=== PATIENT | male | born 1985 | race Caucasian/White ===

== ENCOUNTER 2017-05-18 10:32 | Emergency (ER) | payer BC ==
[2017-05-18] MEDS ORDERED: Lidocaine 1% 20 ML MDV INJECT ONE (11:05)
[2017-05-18] MEDS ORDERED: Diphtheria,Pertussis(Acell),Tetanus Vaccine 0.5 ML Syringe IM ONE (11:24)
[2017-05-18] MEDS ORDERED: Bacitracin Oint 1 GM U/D Packet TOP ONE (12:02)
--- NOTE | 2017-05-18 12:02 | EDM.PDOC ---
ED HPI GENERAL MEDICAL PROBLEM - General Chief Complaint: Laceration Stated Complaint: CUT ON RT HAND Time Seen by Provider: 05/18/17 10:47 Source of Information: Reports: Patient History Limitations: Reports: No Limitations - History of Present Illness INITIAL COMMENTS - FREE TEXT/NARRATIVE: HISTORY AND PHYSICAL: []32-year-old male presenting with a laceration to the palmar surface of his right hand History of Present Illness: []He was cleaning out his garage and cut his hand on a piece of glass Review of Systems: As per history of present illness and below otherwise all systems reviewed and negative. Past medical history: As per history of present illness and as reviewed below otherwise noncontributory. Surgical history: As per history of present illness and as reviewed below otherwise noncontributory. Social history: No reported history of drug or alcohol abuse. Family history: As per history of present illness and as reviewed below otherwise noncontributory. Physical exam: Patient is alert and oriented nontoxic in appearance speaks in full sentences without any shortness of breath. HEENT: Atraumatic, normocehpalic, pupils reactive, negative for conjunctival pallor or scleral icterus, mucous membranes moist, throat clear, neck supple, nontender, trachea midline. Lungs: Clear to auscultation, breath sounds equal bilaterally, chest non tender. Heart: S1S2, regular, negative for clicks, rubs, or JVD. Abdomen: Soft, nondistended, nontender. Negative for masses or hepatossplenmegaly. Negative for costovertebral tenderness. Pelvis: Stable nontender. Genitourinary: Deferred. Rectal: Deferred Extremities: 4 cm flap type laceration to the palmar surface of his right hand. Sensation is intact radial pulses intact. He is able to flex and extend his fingers without any difficulty. Visualization to the wound does not identify any tendons that were involved. Edges were well approximated after sutures placed patient tolerated all procedures well, negative for cords or calf pain. Neurovascular unremarkable. Neuro: Awake, alert, oriented. Cranial nerves II through XII unremarkable. Cerebellum unremarkable. Motor and sensory unremarkable throughout. Exam nonfocal. Diagnostics: [] Therapeutics: [Suture placement] x tetanus vaccine Impression: [Laceration] Plan: []Discharged to home Sutures out in 7-10 days Follow-up with Dr. Ericka Gregg [facility] [address] [place] [address], [address] [place] [address] Definitive disposition and diagnosis as appropriate pending reevaluation and review of above. Treatments DIRECT SUPPORT SPECIALIST: Reports: Other (see below) Other Treatments DIRECT SUPPORT SPECIALIST: Patient applied pressure dressing prior to arrival Right Hand Pain Score (Numeric/FACES): 2 - Related Data Allergies Allergy/AdvReac Type Severity Reaction Status Date / Time No Known Allergies Allergy Verified 09/14/15 11:41 Home Meds: Home Meds . 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 ED EXAM, SKIN/RASH Exam: See Below (See dictation) ED SKIN PROCEDURES - Laceration/Wound Repair Right Posterior Medial Hand Lac/Wound length In cm: 4 Appearance: Muscle, Clean Distal NVT: Neuro & Vascular Intact, No Tendon Injury Anesthetic Type: Local Local Anesthesia - Lidocaine (Xylocaine): 1% Plain Local Anesthetic Volume: 4cc Skin Prep: Saline, Sterile Drape Exploration/Debridement/Repair: Wound Explored, In a Bloodless Field, Explored to Base Closed with: Sutures Suture Size: 4-0 # of Sutures: 6 Suture Type: Nylon, Interrupted, Simple Drain Placement: No Sterile Dressing Applied: Nurse Tetanus Status Addressed: Yes Complications: No Course - Vital Signs Last Recorded V/S: Last Vital Signs Temp 36.3 C 05/18/17 10:44 Pulse 70 05/18/17 10:44 Resp 18 05/18/17 10:44 BP 133/87 05/18/17 10:44 Pulse Ox 97 05/18/17 10:44 - Orders/Labs/Meds Orders: Active Orders 24 hr Category Date Time Status Vaccines to be Administered [RC] PER UNIT ROUTINE Care 05/18/17 11:24 Active Meds: Medications Discontinued Medications Generic Name Dose Route Start Last Admin Trade Name Merlin PRN Reason Stop Dose Admin Diphtheria/Tetanus/Acell Pertussis 0.5 ml 05/18/17 11:24 05/18/17 11:45 Adacel IM 05/18/17 11:25 0.5 ml .ONCE ONE Administration Lidocaine HCl 20 ml 05/18/17 11:05 05/18/17 11:45 Xylocaine 1% INJECT 05/18/17 11:06 20 ml ONETIME ONE Administration Departure - Departure Time of Disposition: 12:00 Disposition: Home, Self-Care 01 Condition: Good Clinical Impression: Laceration - Discharge Information Instructions: Laceration Care, Adult, [id number] Referrals: Jamal Paul MD [Primary Care Provider] - Additional Instructions: The following information is given to patients seen in the emergency department who are being discharged to home. This information is to outline your options for follow-up care. We provide all patients seen in our emergency department with a follow-up referral. The need for follow-up, as well as the timing and circumstances, are variable depending upon the specifics of your emergency department visit. If you don't have a primary care physician on staff, we will provide you with a referral. We always advise you to contact your personal physician following an emergency department visit to inform them of the circumstance of the visit and for follow-up with them and/or the need for any referrals to a consulting specialist. The emergency department will also refer you to a specialist when appropriate. This referral assures that you have the opportunity for followup care with a specialist. All of these measure are taken in an effort to provide you with optimal care, which includes your followup. Under all circumstances we always encourage you to contact your private physician who remains a resource for coordinating your care. When calling for followup care, please make the office aware that this follow-up is from your recent emergency room visit. If for any reason you are refused follow-up, please contact the [facility] emergency department at and asked to speak to the emergency department charge nurse. You were given a tetanus vaccine while in the emergency department, Tylenol will help if you have any aching to your arm for the next 24 hours Please follow-up with Dr. Ericka Gregg [facility] [address] [place] [address], [address] [place] [address] Sutures out in 7 - 10 days - My Orders Last 24 Hours: My Active Orders 05/18/17 11:24 Vaccines to be Administered [RC] PER UNIT ROUTINE - Assessment/Plan Last 24 Hours: My Active Orders 05/18/17 11:24 Vaccines to be Administered [RC] PER UNIT ROUTINE
[2017-05-18 12:33] VITALS: BP 120/76
== END 2017-05-18 12:33 | disposition home or self-care (01) ==
LOC: MW.ED 10:32
DX: S61.411A Laceration without foreign body of right hand, initial encounter (principal); Z23 Encounter for immunization; W25.XXXA Contact with sharp glass, initial encounter
CPT/HCPCS: 12002; 90471; 90715; 99282; 99282-25

== ENCOUNTER 2020-06-26 13:17 | Emergency (ER) | payer BC ==
--- NOTE | 2020-06-26 13:40 | EDM.PDOC ---
ED HPI GENERAL MEDICAL PROBLEM - General Chief Complaint: Abdominal Pain Stated Complaint: ABDOMINAL PAIN Time Seen by Provider: 06/26/20 13:18 Source of Information: Reports: Patient History Limitations: Reports: No Limitations - History of Present Illness INITIAL COMMENTS - FREE TEXT/NARRATIVE: 35-year-old male no past medical history presents for abdominal pain starting 3 days ago and worsening today. Started as a midline lower abdominal cramping pain, and today started to move up into diffuse abdomen. It is associated with constipation with last bowel movement small and hard yesterday, but no nausea, vomiting, fevers, chest pain, cough, shortness of breath. No history of prior abdominal surgeries abdomen Pain Score (Numeric/FACES): 4 - Related Data Allergies Allergy/AdvReac Type Severity Reaction Status Date / Time No Known Allergies Allergy Verified 06/26/20 13:32 Home Meds: Home Meds . 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 ED EXAM, GENERAL - Physical Exam Exam: See Below Exam Limited By: No Limitations General Appearance: Alert, WD/WN, No Apparent Distress Throat/Mouth: Normal Voice, No Airway Compromise Head: Atraumatic, Normocephalic Respiratory/Chest: No Respiratory Distress, Lungs Clear, Normal Breath Sounds, No Accessory Muscle Use Cardiovascular: Normal Peripheral Pulses, Regular Rate, Rhythm GI/Abdominal: Soft, No Distention, Other (diffuse TTP with voluntary guarding) Extremities: Normal Inspection Neurological: Alert Psychiatric: Normal Affect, Normal Mood Skin Exam: Warm, Dry, Intact, Normal Color Course - Vital Signs Last Recorded V/S: Last Vital Signs Temp 98.0 F 06/26/20 13:33 Pulse 96 06/26/20 13:33 Resp 18 06/26/20 13:33 BP 122/82 06/26/20 13:33 Pulse Ox 97 06/26/20 13:33 - Orders/Labs/Meds Orders: Active Orders 24 hr Category Date Time Status Heparin Sod,Pork In 0.45% Nacl [Heparin-1/2Ns 25,000 Med 06/26/20 16:45 Active Units/500] 25,000 unit in 500 ml IV TITRATE Piperacillin/Tazobactam [Piperacil-Tazobact] 4.5 gm Med 06/26/20 16:35 Active Sodium Chloride 0.9% [Normal Saline] 100 ml IV ONETIME Sodium Chloride 0.9% [Saline Flush] Med 06/26/20 13:44 Active 10 ml FLUSH ASDIRECTED PRN Sodium Chloride 0.9% [Saline Flush] Med 06/26/20 13:44 Active 2.5 ml FLUSH ASDIRECTED PRN Saline Lock Insert [OM.PC] Stat Oth 06/26/20 13:44 Ordered Medication Orders Piperacillin Sod/Tazobactam (Sod 4.5 gm/ Sodium Chloride) 100 mls @ 100 mls/hr IV ONETIME ONE Stop: 06/26/20 17:34 Heparin Sodium/Sodium Chloride (Heparin-1/2ns 25,000 Units/500) 25,000 unit in 500 mls @ 25.583 mls/hr IV TITRATE SAVANNA; Protocol Sodium Chloride (Saline Flush) 10 ml FLUSH ASDIRECTED PRN PRN Reason: Keep Vein Open Last Admin: 06/26/20 14:02 Dose: 10 ml Documented by: MANA Sodium Chloride (Saline Flush) 2.5 ml FLUSH ASDIRECTED PRN PRN Reason: Keep Vein Open Last Admin: 06/26/20 14:01 Dose: 2.5 ml Documented by: MANA Labs: Laboratory Tests 06/26/20 06/26/20 06/26/20 Range/Units 13:55 13:58 13:58 WBC 7.99 (4.0-11.0) K/uL RBC 4.81 (4.50-5.90) M/uL Hgb 14.0 (13.0-17.0) g/dL Hct 41.9 (38.0-50.0) % MCV 87.1 (80.0-98.0) fL MCH 29.1 (27.0-32.0) pg MCHC 33.4 (31.0-37.0) g/dL RDW Std Deviation 44.5 (28.0-62.0) fl RDW Coeff of Gunner 14 (11.0-15.0) % Plt Count 196 (150-400) K/uL MPV 9.00 (7.40-12.00) fL Add Manual Diff YES Neutrophils % (Manual) 21 L (48.0-80.0) % Band Neutrophils % 1 % Lymphocytes % (Manual) 73 H (16.0-40.0) % Monocytes % (Manual) 4 (0.0-15.0) % Basophils % (Manual) 1 (0.0-1.5) % Nucleated RBC % 0.0 /100WBC Absolute Seg Neuts 1.7 (1.4-5.7) Band Neutrophils # 0.1 Lymphocytes # (Manual) 5.8 H (0.6-2.4) Monocytes # (Manual) 0.3 (0.0-0.8) Basophils # (Manual) 0.1 (0.0-0.1) Nucleated RBCs # 0 K/uL Reactive Lymphocytes MANY INR APTT (18.6-31.3) SEC Lactate 1.1 (0.20-2.00) mmol/L Sodium (136-148) mmol/L Potassium (3.5-5.1) mmol/L Chloride (98-107) mmol/L Carbon Dioxide (21.0-32.0) mmol/L BUN (7.0-18.0) mg/dL Creatinine (0.8-1.3) mg/dL Est Cr Clr Drug Dosing Estimated GFR (MDRD) ml/min Glucose (74-106) mg/dL Calcium (8.5-10.1) mg/dL Total Bilirubin (0.2-1.0) mg/dL AST (15-37) IU/L ALT (14-63) IU/L Alkaline Phosphatase (46-116) U/L Total Protein (6.4-8.2) g/dL Albumin (3.4-5.0) g/dL Globulin (2.6-4.0) g/dL Albumin/Globulin Ratio (0.9-1.6) Lipase (73-393) U/L Urine Color YELLOW Urine Appearance CLEAR Urine pH 6.0 (5.0-8.0) Ur Specific [place] 1.015 (1.001-1.035) Urine Protein NEGATIVE (NEGATIVE) mg/dL Urine Glucose (UA) NEGATIVE (NEGATIVE) mg/dL Urine Ketones 15 H (NEGATIVE) mg/dL Urine Occult Blood NEGATIVE (NEGATIVE) Urine Nitrite NEGATIVE (NEGATIVE) Urine Bilirubin NEGATIVE (NEGATIVE) Urine Urobilinogen 0.2 (<2.0) EU/dL Ur Leukocyte Esterase NEGATIVE (NEGATIVE) SARS CoV-2 RNA Rapid SUDHIR (NEGATIVE) 06/26/20 06/26/20 06/26/20 Range/Units 13:58 13:58 15:48 WBC (4.0-11.0) K/uL RBC (4.50-5.90) M/uL Hgb (13.0-17.0) g/dL Hct (38.0-50.0) % MCV (80.0-98.0) fL MCH (27.0-32.0) pg MCHC (31.0-37.0) g/dL RDW Std Deviation (28.0-62.0) fl RDW Coeff of Gunner (11.0-15.0) % Plt Count (150-400) K/uL MPV (7.40-12.00) fL Add Manual Diff Neutrophils % (Manual) (48.0-80.0) % Band Neutrophils % % Lymphocytes % (Manual) (16.0-40.0) % Monocytes % (Manual) (0.0-15.0) % Basophils % (Manual) (0.0-1.5) % Nucleated RBC % /100WBC Absolute Seg Neuts (1.4-5.7) Band Neutrophils # Lymphocytes # (Manual) (0.6-2.4) Monocytes # (Manual) (0.0-0.8) Basophils # (Manual) (0.0-0.1) Nucleated RBCs # K/uL Reactive Lymphocytes INR 1.08 APTT 25.9 (18.6-31.3) SEC Lactate (0.20-2.00) mmol/L Sodium 139 (136-148) mmol/L Potassium 4.0 (3.5-5.1) mmol/L Chloride 102 (98-107) mmol/L Carbon Dioxide 26.4 (21.0-32.0) mmol/L BUN 8 (7.0-18.0) mg/dL Creatinine 1.0 (0.8-1.3) mg/dL Est Cr Clr Drug Dosing TNP Estimated GFR (MDRD) > 60.0 ml/min Glucose 88 (74-106) mg/dL Calcium 8.6 (8.5-10.1) mg/dL Total Bilirubin 1.0 (0.2-1.0) mg/dL AST 87 H (15-37) IU/L ALT 155 H (14-63) IU/L Alkaline Phosphatase 131 H (46-116) U/L Total Protein 8.0 (6.4-8.2) g/dL Albumin 3.9 (3.4-5.0) g/dL Globulin 4.1 H (2.6-4.0) g/dL Albumin/Globulin Ratio 1.0 (0.9-1.6) Lipase 89 (73-393) U/L Urine Color Urine Appearance Urine pH (5.0-8.0) Ur Specific [place] (1.001-1.035) Urine Protein (NEGATIVE) mg/dL Urine Glucose (UA) (NEGATIVE) mg/dL Urine Ketones (NEGATIVE) mg/dL Urine Occult Blood (NEGATIVE) Urine Nitrite (NEGATIVE) Urine Bilirubin (NEGATIVE) Urine Urobilinogen (<2.0) EU/dL Ur Leukocyte Esterase (NEGATIVE) SARS CoV-2 RNA Rapid SUDHIR NEGATIVE (NEGATIVE) Meds: Medications Generic Name Dose Route Start Last Admin Trade Name Freq PRN Reason Stop Dose Admin Piperacillin Sod/Tazobactam 100 mls @ 100 mls/hr 06/26/20 16:35 Sod 4.5 gm/ Sodium Chloride IV 06/26/20 17:34 ONETIME ONE Heparin Sodium/Sodium Chloride 25,000 unit in 500 mls @ 25.583 mls/hr 06/26/20 16:45 Heparin-1/2ns 25,000 Units/500 IV TITRATE SAVANNA Protocol 12 UNITS/KG/HR Sodium Chloride 10 ml 06/26/20 13:44 06/26/20 14:02 Saline Flush FLUSH 10 ml ASDIRECTED PRN Administration Keep Vein Open Sodium Chloride 2.5 ml 06/26/20 13:44 06/26/20 14:01 Saline Flush FLUSH 2.5 ml ASDIRECTED PRN Administration Keep Vein Open Discontinued Medications Generic Name Dose Route Start Last Admin Trade Name Abdonq PRN Reason Stop Dose Admin Heparin Sodium (Porcine) 5,000 units 06/26/20 16:35 Heparin Sodium IVPUSH 06/26/20 16:36 ONETIME ONE Iopamidol 100 ml 06/26/20 15:15 06/26/20 15:17 Isovue Multipack-370 (76%) IVPUSH 06/26/20 15:16 100 ml ONETIME STA Administration - Re-Assessments/Exams Free Text/Narrative Re-Assessment/Exam: 06/26/20 15:41 CT abdomen pelvis is remarkable for a superior mesenteric vein thrombosis. He does not seem to be evidence of bowel ischemia. Lactate is 1.1, so low suspicion of gut ischemia. Will Covid swab patient. Will transfer to higher level of care. 06/26/20 15:[address] Informed patient of abnormal CT results. He does note a history of a clotting disorder that he did not mention earlier. 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 He is not on any anticoagulants. 06/26/20 16:[address] Womack at [facility] who agrees to consult, recommends starting Zosyn. Spoke with Dr. Winchester at [facility] hospitalist who recommends starting heparin and will accept to his service. Departure - Departure Time of Disposition: 16:51 Disposition: DC/Tfer to Acute Hospital 02 Condition: Fair Clinical Impression: Superior mesenteric vein thrombosis - Discharge Information Referrals: Jamal Paul MD [Primary Care Provider] - Forms: ED Department Discharge Sepsis Event Note (ED) - Evaluation Sepsis Screening Result: No Definite Risk - Focused Exam Vital Signs: Vital Signs Temp Pulse Resp BP Pulse Ox 06/26/20 13:33 98.0 F 96 18 122/82 97 - My Orders Last 24 Hours: My Active Orders 06/26/20 13:44 Sodium Chloride 0.9% [Saline Flush] 10 ml FLUSH ASDIRECTED PRN Sodium Chloride 0.9% [Saline Flush] 2.5 ml FLUSH ASDIRECTED PRN Saline Lock Insert [OM.PC] Stat 06/26/20 16:35 Piperacillin/Tazobactam [Piperacil-Tazobact] 4.5 gm Sodium Chloride 0.9% [Normal Saline] 100 ml IV ONETIME 06/26/20 16:45 Heparin Sod,Pork In 0.45% Nacl [Heparin-1/2Ns 25,000 Units/500] 25,000 unit in 500 ml IV TITRATE - Assessment/Plan Last 24 Hours: My Active Orders 06/26/20 13:44 Sodium Chloride 0.9% [Saline Flush] 10 ml FLUSH ASDIRECTED PRN Sodium Chloride 0.9% [Saline Flush] 2.5 ml FLUSH ASDIRECTED PRN Saline Lock Insert [OM.PC] Stat 06/26/20 16:35 Piperacillin/Tazobactam [Piperacil-Tazobact] 4.5 gm Sodium Chloride 0.9% [Normal Saline] 100 ml IV ONETIME 06/26/20 16:45 Heparin Sod,Pork In 0.45% Nacl [Heparin-1/2Ns 25,000 Units/500] 25,000 unit in 500 ml IV TITRATE
[2020-06-26] MEDS ORDERED: Sodium Chloride 0.9% 2.5 ML Syringe FLUSH PRN (13:44)
[2020-06-26] MEDS ORDERED: Sodium Chloride 0.9% 10 ML Syringe FLUSH PRN (13:44)
[2020-06-26 14:29] LABS: BLOOD UREA NITROGEN,BUN 8 mg/dL (7.0-18.0); CARBON DIOXIDE,CO2 26.4 mmol/L (21.0-32.0); CHLORIDE,CL 102 mmol/L (98-107); GLUCOSE RANDOM 88 mg/dL (74-106); LIPASE 89 U/L (73-393); SODIUM,NA 139 mmol/L (136-148)
[2020-06-26] MEDS ORDERED: Iopamidol 755 MG/ML 500 ML Multipack Bottle IVPUSH STA (15:15)
--- NOTE | 2020-06-26 15:39 | CT ---
Indication: Abdominal pain Technique: Volumetric multidetector CT images of the abdomen and pelvis were obtained after the administration of intravenous contrast. 100 cc Isovue 370 Comparison: None available. Findings: The lung bases demonstrate minimal basilar atelectasis versus scar. The liver demonstrates hepatic steatosis and hepatomegaly. There is demonstration of focal thrombosis of the mid superior mesenteric vein at the level of the pancreatic head with perifoveal inflammatory changes. There is no evidence of thrombosis extension into the splenic vein or the main portal vein. The gallbladder is unremarkable without evidence of radiopaque calculus. There is no significant common biliary ductal dilatation or abrupt cut off. The spleen is markedly enlarged. The stomach and duodenum are grossly unremarkable. The pancreas is normal in enhancement without significant atrophy. The adrenal glands are unremarkable. The kidneys demonstrate preserved corticomedullary differentiation without evidence of obstructive uropathy. There is a minimal amount of stool seen throughout the colon with colonic diverticulosis without evidence of diverticulitis. There are nonspecifically dilated fluid filled loops of central small bowel. The appendix is unremarkable. There is no significant mesenteric, retroperitoneal, or pelvic sidewall lymph nodes. The aorta is nonaneurysmal. There is no significant atherosclerotic disease appreciated. The solid pelvic viscera are grossly unremarkable. There is central mesenteric and retroperitoneal edema without evidence of intra-abdominal free air or free fluid. There is a small fat containing umbilical hernia otherwise the anterior abdominal wall is intact. The lumbar vertebral body heights are grossly maintained in satisfactory alignment without evidence of displaced fracture, lytic or blastic lesion. Impression: Demonstration of occlusive thrombosis of the mid superior mesenteric vein beginning at the level of the pancreatic head without evidence of extension to the main portal vein or splenic veins which could represent thrombophlebitis secondary to inflammation of adjacent structures. There is mild associated central mesenteric edema. There is moderate hepatosplenomegaly. Findings reported to Fausto Huertas at 3:37 p.m. 06/26/[address] Please note that all CT scans at this facility use dose modulation, iterative reconstruction, and/or weight-based dosing when appropriate to reduce radiation dose to as low as reasonably achievable. Dictated by Prasanna William MD @ Jun 26 2020 3:28PM Signed by Dr. Prasanna William @ Jun 26 2020 3:37PM
[2020-06-26] MEDS ORDERED: Heparin Sodium 5,000 Units/ML Vial IVPUSH ONE (16:35)
[2020-06-26] MEDS ORDERED: Piperacillin/Tazobactam 4.5 GM in Sodium Chloride 0.9% 100 ML IV ONE (16:35)
[2020-06-26] MEDS ORDERED: Heparin Sod,Pork In 0.45% Nacl 25,000 UNIT/500 ML IV.SOLN IV SCH (16:45)
[2020-06-26 17:36] VITALS: BP 113/60; PULSE 87
== END 2020-06-26 18:06 ==
LOC: MW.ED 13:17
DX: K55.059 Acute (reversible) ischemia of intestine, part and extent unspecified (principal); Z20.828 Contact with and (suspected) exposure to other viral communicable diseases
CPT/HCPCS: 36415; 74177; 80053; 81003; 83605; 83690; 85025; 85610; 85730; 87635; 96365; 96375; 99285; J1644; J2543; J7050; Q9967; 99284; U0002

== ENCOUNTER 2021-11-05 17:50 | Inpatient (IN) | payer BC ==
[2021-11-05] MEDS ORDERED: Sodium Chloride 0.9% 2.5 ML Syringe FLUSH PRN (18:57)
[2021-11-05] MEDS ORDERED: Sodium Chloride 0.9% 10 ML Syringe FLUSH PRN (18:57)
[2021-11-05] MEDS ORDERED: Iopamidol 755 MG/ML 500 ML Multipack Bottle IVPUSH STA (19:56)
[2021-11-05] MEDS ORDERED: metroNIDAZOLE/Normal Saline 500 MG in Premix Bag 1 BAG IV ONE (20:48)
[2021-11-05] MEDS ORDERED: cefTRIAXone 1 GM in Lidocaine 1% 4 ML IM STA (20:48)
[2021-11-05] MEDS ORDERED: Lactated Ringers 1,000 ML IV STA (20:51)
[2021-11-05 21:18] LABS: BLOOD UREA NITROGEN,BUN 13 mg/dL (7.0-18.0); CARBON DIOXIDE,CO2 27.2 mmol/L (21.0-32.0); CHLORIDE,CL 98 mmol/L (98-107); GLUCOSE RANDOM 108 mg/dL (74-106); POTASSIUM,K 4.7 mmol/L (3.5-5.1); SODIUM,NA 134 mmol/L (136-148)
[2021-11-05] MEDS ORDERED: fentaNYL 50 MCG/ML SDV IVPUSH ONE (21:50)
[2021-11-06] MEDS ORDERED: oxyCODONE 5 MG Tab PO PRN (01:14)
[2021-11-06] MEDS ORDERED: Morphine 2 MG/ML SYRINGE IVPUSH PRN (01:14)
[2021-11-06] MEDS ORDERED: Sodium Chloride 0.9% 1,000 ML IV SCH (01:15)
[2021-11-06] MEDS: Ciprofloxacin in D5W 400 MG in Premix Bag 1 BAG IV SCH ×4 (02:00→12:15)
[2021-11-06] MEDS: metroNIDAZOLE/Normal Saline 500 MG in Premix Bag 1 BAG IV SCH ×4 (03:22→21:19)
[2021-11-06 07:43] LABS: BLOOD UREA NITROGEN,BUN 12 mg/dL (7.0-18.0); CARBON DIOXIDE,CO2 25.3 mmol/L (21.0-32.0); CHLORIDE,CL 101 mmol/L (98-107); GLUCOSE RANDOM 90 mg/dL (74-106); POTASSIUM,K 3.9 mmol/L (3.5-5.1); SODIUM,NA 136 mmol/L (136-148)
[2021-11-06] MEDS: Enoxaparin 40 MG/0.4 ML Syringe SUBCUT SCH (08:28)
[2021-11-07] MEDS: metroNIDAZOLE/Normal Saline 500 MG in Premix Bag 1 BAG IV SCH ×2 (05:04→09:58)
[2021-11-07] MEDS: Ciprofloxacin in D5W 400 MG in Premix Bag 1 BAG IV SCH ×4 (05:04→08:50)
[2021-11-07 07:51] LABS: BLOOD UREA NITROGEN,BUN 12 mg/dL (7.0-18.0); CARBON DIOXIDE,CO2 25.2 mmol/L (21.0-32.0); CHLORIDE,CL 104 mmol/L (98-107); GLUCOSE RANDOM 119 mg/dL (74-106); SODIUM,NA 139 mmol/L (136-148)
[2021-11-07] MEDS: Enoxaparin 40 MG/0.4 ML Syringe SUBCUT SCH (09:58)
[2021-11-07 11:42] VITALS: BP 124/77; PULSE 73
== END 2021-11-07 12:00 | disposition home or self-care (01) | DRG 244 ==
LOC: MW.ED 17:50 → MW.MS 22:10
PROVIDERS: ADMIT Internal Medicine; ATTEND Internal Medicine
DX: K57.32 Diverticulitis of large intestine without perforation or abscess without bleeding (principal); D68.52 Prothrombin gene mutation; Z86.73 Personal history of transient ischemic attack (TIA), and cerebral infarction without residual deficits; Z20.822 Contact with and (suspected) exposure to COVID-19
CPT/HCPCS: 36415; 74177; 74177-26; 80053; 83605; 85025; 85027; 85610; 87040; 96374; 99285-25; J0696; J0744; J1650; J3010; J3490; J7030; J7120; Q9967; U0002

== ENCOUNTER 2022-12-29 07:22 | Emergency (ER) | payer BC ==
[2022-12-29] MEDS ORDERED: Lidocaine 4% 1 each Patch TOP PRN (07:51)
[2022-12-29] MEDS ORDERED: Ibuprofen 400 MG Tab PO ONE (07:51)
[2022-12-29] MEDS ORDERED: Morphine 15 MG Tab PO STA (07:51)
[2022-12-29 09:33] VITALS: BP 136/81; PULSE 82
== END 2022-12-29 09:54 | disposition home or self-care (01) ==
LOC: MW.ED 07:22
DX: M54.50 Low back pain, unspecified (principal); Z86.73 Personal history of transient ischemic attack (TIA), and cerebral infarction without residual deficits
CPT/HCPCS: 72100; 99283; A9270